=== PATIENT | male | born 1955 | race Caucasian/White ===

== ENCOUNTER 2019-10-29 08:11 | Emergency (ER) | payer OTHER ==
[~2019-10-29] VITALS: Ht 182.9 cm; Wt 83.9 kg
[2019-10-29] MEDS ORDERED: LIPITOR10 MG PO (08:30)
[2019-10-29 09:09] LABS: URINE BILIRUBIN NEGATIVE (Negative); URINE BLOOD NEGATIVE (Negative); URINE CLARITY CLEAR; URINE COLOR YELLOW; URINE GLUCOSE-RANDOM* NEGATIVE (Negative); URINE KETONES 2+ (Negative); URINE LEUKOCYTES-REFLEX NEGATIVE (Negative); URINE NITRITE-REFLEX NEGATIVE (Negative); URINE PROTEIN (DIPSTICK) NEGATIVE (Negative); URINE UROBILINOGEN 0.2 E.U./dl (0.2-1.0)
[2019-10-29] MEDS ORDERED: LEVAQUIN 750 M750 MG PO (10:26)
[2019-10-29 10:47] VITALS: BP 118/74
== END 2019-10-29 10:48 | disposition home or self-care (01) ==
LOC: ER 08:11
PROVIDERS: Emergency Medicine
DX: J18.1 Lobar pneumonia, unspecified organism (principal); K59.00 Constipation, unspecified; Z03.818 Encounter for observation for suspected exposure to other biological agents ruled out

== ENCOUNTER → 2019-11-11 | Outpatient (CLI) | payer OTHER ==
[~2019-11-11] MED LIST: LEVAQUIN 750 M750 MG PO; LIPITOR10 MG PO
== END ==
LOC: RAD 09:34 → LABMALL 09:34
DX: J18.1 Lobar pneumonia, unspecified organism (principal)

== ENCOUNTER → 2020-12-02 | Outpatient (CLI) | payer OTHER ==
[2020-12-02 12:06] LABS: ABSOLUTE NEUTROPHILS 3.9 thou/uL (1.4-8.2); BASOPHILS 0.9 % (0.0-2.0); EOSINOPHILS 1.4 % (0.0-3.0); HEMOGLOBIN 15.1 gm/dL (14.0-18.0); LYMPHOCYTES 36.4 % (24.0-44.0); MCH 31.2 pg (26.0-34.0); MCHC 34.2 g/dL (28.0-37.0); MCV 91.2 fL (80.0-100.0); MONOCYTES 10.1 % (1.0-8.0); PLATELET COUNT 299 thou/uL (150-400); POLYS 51.2 % (36.0-66.0); RBC 4.83 mil/uL (4.50-6.00); RDW 13.1 % (10.5-14.5); WBC 7.6 thou/uL (4.0-11.0)
[2020-12-02 12:27] LABS: ANION GAP 11 mmol/L (7-16); BUN 23 mg/dL (7-18); CHLORIDE 103 mmol/L (98-107); CHOLESTEROL 194 mg/dL (<200); CO2 28 mmol/L (21-32); CREATININE 0.8 mg/dL (0.7-1.3); GLUCOSE 97 mg/dL (74-106); HDL CHOLESTEROL 63 mg/dL (>40); LDL CHOLESTEROL 108 mg/dL (<100); POTASSIUM 3.8 mmol/L (3.5-5.1); SGOT 19 U/L (15-37); SGPT 37 U/L (30-65); SODIUM 142 mmol/L (136-145); TC:HDL 3.1 Ratio (Not establshd); TOTAL BILIRUBIN 0.5 mg/dL (0.2-1.0); TOTAL PROTEIN 7.6 g/dL (6.4-8.2); TRIGLYCERIDE 116 mg/dL (<150); VLDL 23 mg/dL (<40)
[2020-12-02 23:06] LABS: GLYCOHEMOGLOBIN (HGB A1C) 5.8 % (4.8-5.6)
== END ==
LOC: LAB 10:13
PROVIDERS: ATTEND Nurse Practitioner
DX: E66.9 Obesity, unspecified (principal); M79.10 Myalgia, unspecified site; R68.89 Other general symptoms and signs; E78.2 Mixed hyperlipidemia; R53.83 Other fatigue

== ENCOUNTER → 2021-01-10 | Outpatient (CLI) | payer OTHER ==
[~2021-01-10] VITALS: Ht 182.9 cm; Wt 88.5 kg
[~2021-01-10] MED LIST changes: +ALLEGRA ALLERG180 MG PO; +DAILY VITAMIN1 EAC6 PO; +LOVASTAT10 PO; +OLIVE LEAF EXT250 MG PO; +VITAMIN B COMP1 EACH PO; +VITAMIN C500 M2 PO
== END | disposition home or self-care (01) ==
LOC: GI 09:19
PROVIDERS: ATTEND Internal Medicine Gastroenterology
DX: Z12.11 Encounter for screening for malignant neoplasm of colon (principal); Z86.010 Personal history of colon polyps; Z80.0 Family history of malignant neoplasm of digestive organs; K57.30 Diverticulosis of large intestine without perforation or abscess without bleeding; K64.8 Other hemorrhoids; I10 Essential (primary) hypertension; E78.5 Hyperlipidemia, unspecified; Z98.890 Other specified postprocedural states; Z79.899 Other long term (current) drug therapy; Z96.651 Presence of right artificial knee joint; Z88.0 Allergy status to penicillin
CPT/HCPCS: 62110; 62900

== ENCOUNTER → 2021-01-16 | Outpatient (CLI) | payer OTHER | LOC: CAT 10:26 | PROVIDERS: ATTEND Internal Medicine | DX: Z13.6 Encounter for screening for cardiovascular disorders (principal); I25.10 Atherosclerotic heart disease of native coronary artery without angina pectoris; E78.00 Pure hypercholesterolemia, unspecified ==

== ENCOUNTER → 2021-07-13 | Outpatient (CLI) | payer MEDICARE ==
[~2021-07-13] MED LIST changes: +ASA81BEC PO; +[UNRECOGNIZED DRUG - OTHER] PO
== END ==
LOC: SJCVC 09:08
PROVIDERS: ATTEND Internal Medicine
DX: E78.2 Mixed hyperlipidemia (principal); R93.1 Abnormal findings on diagnostic imaging of heart and coronary circulation; E78.00 Pure hypercholesterolemia, unspecified; Z72.89 Other problems related to lifestyle; Z88.0 Allergy status to penicillin; Z79.82 Long term (current) use of aspirin; Z79.899 Other long term (current) drug therapy; Z82.49 Family history of ischemic heart disease and other diseases of the circulatory system

== ENCOUNTER → 2021-07-17 | Outpatient (CLI) | payer MEDICARE ==
[2021-07-17 09:50] LABS: PROTIME 10.9 Seconds (10.5-12.1)
== END ==
LOC: PAC 08:33
PROVIDERS: ATTEND Orthopaedic Surgery Sports Medicine
DX: Z01.818 Encounter for other preprocedural examination (principal); M17.9 Osteoarthritis of knee, unspecified

== ENCOUNTER 2021-07-24 09:54 | Observation (INO) | payer MEDICARE ==
[2021-07-17 09:09] LABS: HEMATOCRIT 45.5 % (42.0-52.0); HEMOGLOBIN 15.6 gm/dL (14.0-18.0); MCH 30.7 pg (26.0-34.0); MCHC 34.3 g/dL (28.0-37.0); MCV 89.4 fL (80.0-100.0); RBC 5.09 mil/uL (4.50-6.00); RDW 12.8 % (10.5-14.5); WBC 9.1 thou/uL (4.0-11.0)
[2021-07-17 09:18] LABS: CALCIUM 9.4 mg/dL (8.5-10.1); POTASSIUM 4.1 mmol/L (3.5-5.1)
[2021-07-17 11:57] LABS: URINE BILIRUBIN NEGATIVE (Negative); URINE BLOOD NEGATIVE (Negative); URINE CLARITY CLEAR; URINE COLOR YELLOW; URINE GLUCOSE-RANDOM* NEGATIVE (Negative); URINE KETONES NEGATIVE (Negative); URINE LEUKOCYTES-REFLEX TRACE (Negative); URINE NITRITE-REFLEX NEGATIVE (Negative); URINE PROTEIN (DIPSTICK) NEGATIVE (Negative); URINE UROBILINOGEN 0.2 E.U./dl (0.2-1.0)
[~2021-07-24] VITALS: Ht 182.9 cm; Wt 91.2 kg
--- NOTE | ~2021-07-24 | O ---
[address] [address] OPERATIVE REPORT Name: RAHEL JONES Room #: REG [facility]#: [id number] Admission: 07/24/21 Attend Phys: Dung Mendoza MD Discharge: Date of : 57 Report #: [id number] THIS REPORT FOR: cc: Ruth Campbell DNP, Mary E. DNP McCabe, Michael P. MD ~ DATE OF SERVICE: 07/24/2021 SERVICE: Orthopedics. FACILITY: [facility]. SURGEON: Dung Mendoza MD MARKETING AND COMMUNICATIONS OFFICER: Isabell Casillas NP INDICATIONS FOR MARKETING AND COMMUNICATIONS OFFICER: Extremity positioning, exposure, closure, and assistance with reconstruction. PREOPERATIVE DIAGNOSIS: 1. Left knee pain. 2. Left knee medial compartment osteoarthritis. POSTOPERATIVE DIAGNOSES: 1. Left knee pain. 2. Left knee medial compartment osteoarthritis. PROCEDURES PERFORMED: 1. Left knee medial unicompartmental arthroplasty. 2. Robotic-assisted arthroplasty. COMPLICATIONS: None. DRAINS: None. SPECIMENS: None. ANESTHESIA: General with regional. ESTIMATED BLOOD LOSS: 50 mL. FINDINGS: [employer] size 9 tibial component, size 9 Journey II Oxinium femoral component, and size 8 poly insert. HISTORY: The patient is a 66-year-old gentleman with a history of persistent progressive left medial joint line pain secondary to severe osteoarthritis of [address] [address] OPERATIVE REPORT Name: RAHEL JONES Room #: REG [facility]#: [id number] Admission: 07/24/21 Attend Phys: Dung Mendoza MD Discharge: Date of : 57 Report #: [id number] the medial compartment. He had no other symptoms attributable to the patellofemoral or the lateral compartment. He had a history of a previous unicompartmental knee arthroplasty on the right knee about 15 years ago and had a good outcome and wished to have similar procedure done on the left side. We had the patient treated with rest, activity modifications, physical therapy, oral medicines, intraarticular injection and modalities, all without sufficient relief. He had [id number] osteoarthritis of the medial compartment with osteophytes and sclerosis, was indicated for surgical treatment. Risks, benefits, alternatives, and indications were discussed with him in detail. Risks include but not limited to pain, bleeding, infection, injuring nerves or blood vessels, persistent pain despite surgical intervention, failure of any reconstruction, need for further surgery including conversion to total as well as complications related to anesthesia. Despite the risks, he wished to proceed. PROCEDURE IN DETAIL: After left lower extremity was correctly identified in the preoperative holding area as the operative extremity, the patient underwent regional nerve blocks. He was then taken to the operating room where general anesthesia was induced without complications. He was padded appropriately. Prophylactic antibiotics were administered at appropriate time. Left lower extremity and tourniquet applied. Left leg was then prepped and draped in standard sterile fashion. Timeout procedure performed. Esmarch was used, tourniquet was inflated to 250 mmHg. Standard anterior approach was made with medial parapatellar arthrotomy. The exposure was performed including resection of the medial meniscus anterior horn. A limited soft tissue release medially was performed and then the retropatellar fat pad was resected. He had quite severe medial compartment osteoarthritis with exposed eburnated bone, large osteophytes, and sclerosis. There was some notch osteophytes. The ACL was intact. The lateral compartment was normal. 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 The median medial-sided osteophytes were resected. The checkpoints were placed and the half pins were placed in the tibia and the femur. The [employer] [employer] robotic system was then utilized to assess his alignment. He had a preoperative flexion contracture approximately 7-8 degrees and he was in 9 degrees of varus. We templated for a 9 femur and 9 tibia with a 9 poly and then proceeded with the bone cuts. After the femur was milled and the tibia was prepared, we placed the trials and I then utilized the CORI robotic-assisted for intraoperative feedback. The 9 mm poly made him tight and he had maintained a flexion contracture of about 5 degrees, so we switched to 8 mm and we were able to extend him to about 1 degree flexion contracture, although he does have significant posterior soft tissue contractures, which he will need to work on [address] [address] OPERATIVE REPORT Name: RAHEL JONES [id number] Admission: 07/24/21 Attend Phys: Dung Mendoza MD Discharge: Date of : 57 Report #: [id number] postoperatively but the balancing and range of motion was better with the 8 mm poly and his alignment was corrected to approximately 5 degrees of varus. We then proceeded with final preparation of the bone and used the first one-third of the periarticular injection cocktail to inject into the posterior capsule and periosteum and then after final preparation was performed, the knee was once again irrigated and the final components were cemented into place. The 9 poly trial was placed to compress the implants in extension while the cement cured. We placed the rest of the periarticular injection cocktail into the soft tissues and then let tourniquet down and achieved hemostasis. After the cement had hardened, we assessed the balancing, again the 9 felt too tight. We placed the 8 and assessed and it was much better balancing and better extension with the 8, so we elected for the final implant, removed the 8 poly and irrigated once more, confirmed that all bone and cement had been removed and then placed the final 8 poly tray into the tibia, snapped into position, irrigated once more, and then took the knee through range of motion. I was happy with the balancing at this time. The arthrotomy was closed with 0 Vicryl suture in [id number] fashion. The skin was closed with 2-0 Vicryl and running subcuticular 3-0 Monocryl followed by Dermabond. Sterile dressing was applied followed by a thigh-high compression stocking. The patient was awakened from anesthesia and taken to recovery room in stable condition. There were no complications. All counts were reported as correct. By: 21 41 Dung Mendoza MD /nt
[2021-07-24 11:45] VITALS: BP 144/84
[2021-07-24 22:07] VITALS: BP 138/90
--- NOTE | 2021-07-24 23:45 | NUR ---
PT ADMITTED TO UNIT POST SX. PT IS A/O X4 AND IS PLEASANT AND COOPERATIVE. UP WITH ASSISTANCE WITH WALKER AND GB. VSS. MEDICATION GIVEN PER MAR. FLUIDS INFUSING AT PRESCRIBED RATE. PT HAS BEEN EDUCATED ON USE OF CALL LIGHT AND BED CONTROLS. ADMISSION IS COMPLETE. CALL LIGHT IS WITHIN REACH.
[2021-07-25 04:27] VITALS: BP 116/81
[2021-07-25 07:21] VITALS: BP 110/72
--- NOTE | 2021-07-25 10:04 | NUR ---
PT ADMITTED RELATED TO LT KNEE MEDIAL LATERAL COMPARTMENT RELEASE. CM REVIEWED CHART AND SPOKE WITH CARE TEAM. CM MET WITH PT AT BEDSIDE THIS DAY. PT APPEARED TO BE A&O X4. CM ROLE INTRODUCED. PT INDICATED HE LIVES IN A HOUSE WITH HIS WITH 1 STEP TO ENTER AND NO STEPS INSIDE. 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 PT INDICATED HE HE HAS A FWW FOR USE UPON DC. PT ESTABLISHED WITH OP PT AT [facility]POINT[facility] TOMORROW. PT'S SPOSUE TO PROVIDE TRANSPORT HOME THIS DAY. NO OTHER CM INTERVNETION INDICATED. CASE CLOSED.
[2021-07-25 11:07] VITALS: BP 110/72
--- NOTE | 2021-07-25 11:27 | NUR ---
Assumed care of pt at 0700. Pt a&ox4. Pain controlled with prn pain medications. Pt worked with physical therapy this am and was cleared to discharge to home. JESSIE tay and SCDs in place. Polar care in place. Call light within reach.
== END 2021-07-25 12:37 | disposition home or self-care (01) ==
LOC: OR → 4W 21:23 → OR 21:24 → 4W 21:24
PROVIDERS: ADMIT Orthopaedic Surgery Sports Medicine; ATTEND Orthopaedic Surgery Sports Medicine
DX: M17.12 Unilateral primary osteoarthritis, left knee (principal); E78.00 Pure hypercholesterolemia, unspecified; E78.5 Hyperlipidemia, unspecified; Z20.822 Contact with and (suspected) exposure to COVID-19; Z90.49 Acquired absence of other specified parts of digestive tract; Z79.899 Other long term (current) drug therapy; Z88.0 Allergy status to penicillin; Z88.1 Allergy status to other antibiotic agents
CPT/HCPCS: 50010; 50101; 50415; 50954; 51130; 51225; 51320; 52001; 53078; 54118; 56527; 56528; 57095; 57103; 57110; 57180; 58239; 59140; 59141; 62110; 62900; 64039; 70005